=== PATIENT | male | born 1970 | race Caucasian/White ===

== ENCOUNTER → 2024-10-22 | Outpatient (BNVA) | payer SELFPAY | END | disposition home or self-care (01) | PROVIDERS: PCP Family Medicine; Referring Provider Family Medicine; Visit Provider Urology | DX: N47.1 Phimosis (principal); N52.9 Male erectile dysfunction, unspecified; E66.9 Obesity, unspecified; Z68.35 Body mass index [BMI] 35.0-35.9, adult | CPT/HCPCS: 81003; 99203; G0463 ==